=== PATIENT | female | born 1970 | race Caucasian/White ===

== ENCOUNTER 2020-11-24 13:59 | Inpatient (IN) | payer BC, SELFPAY ==
[2020-11-24] VITALS (8 sets, daily range): BP systolic 124–146; BP diastolic 74–98; PULSE 88–115; RESP 20–22; TEMP 36.9–37.3; O2SAT 95–99; BMI 40.4
--- NOTE | ~2020-11-24 | CT_ITS ---
EXAMINATION: CT chest abdomen pelvis w con EXAM DATE: 11/24/2020 15:29 INDICATION: Gastroenteritis, shortness of breath, severe N/V/D. dx COVID+ 11/17/20 . TECHNIQUE: Spiral CT of the chest, abdomen and pelvis was performed following intravenous injection o f 100 mL Omnipaque 350. Axial, coronal and sagittal images chest, abdomen and pelvis were reviewed. Coronal maximum intensity pixel images of chest reviewed. The dose-length product (DLP) for this ex amination was 1545.59 mGy-cm. The exposure was tailored according to patient size (auto mA exposure control), and iterative reconstruction (ASIR) was used as additional dose reduction technique. Correl ation is made to CT abdomen pelvis 05/06/2015. FINDINGS: CHEST: Scattered small regions of peripheral predominant groundglass airspace disease Appearance is typical of early stage COVID 19 pneumonia. Less likely acute possibilities include influenza, pulmon ciarra edema or hemorrhage. No confluent consolidation. No central pulmonary emboli. There are no pleura l or pericardial effusions. Tracheobronchial tree is patent. There is no mediastinal, hilar or ax illary lymphadenopathy. There is no pneumothorax. Heart normal in size. No evidence of coronary arterial calcification. ABDOMEN PELVIS: There is hepatic steatosis without suspicious focal lesion identified. Spleen, adrena l glands, pancreas are unremarkable. Gallbladder is unremarkable. No biliary obstruction. Portal a nd splenic veins are patent. Kidneys enhance symmetrically. There is no hydronephrosis. The uteru s is not identified and has likely been surgically resected. The bladder is unremarkable. There is no retroperitoneal or pelvic lymphadenopathy. The appendix is normal. The stomach and small bowel are unremarkable. There is expected amount of c olonic stool. No free intraperitoneal gas. There are no osteoblastic or osteolytic lesions identi fied. IMPRESSION: 1. Bibasilar pneumonia consistent with Covid 19 etiology. 2. No acute intra-abdominal findings. 3. Hepatic steatosis. Reviewed, dictated and finalized at location A.
[2020-11-24 14:42] LABS: Add Urine Microscopic? YES; Appearance Urine Sl Cloudy (Clear); Bilirubin Urine Negative (Negative); Blood Urine Negative (Negative); Color Urine Yellow (Yellow); Glucose Urine UA Negative (Negative); Ketones Urine 1+ (Negative); Leukocyte Esterase Ur Negative (Negative); Nitrate Urine Positive (Negative); Protein Urine 3+ (Negative); Specific Grav Ur >= 1.030 (1.010-1.020); pH Urine 5.5 (5.0-8.0)
[2020-11-24 14:50] LABS: Basophils Absolute Auto 0.01 K/mm3 (0.00-0.10); Basophils Percent Auto 0.2 % (0.0-1.0); Eosinophils Absolute Auto 0.05 K/mm3 (0.02-0.50); Eosinophils Percent Auto 0.8 % (1.0-6.0); Hemoglobin 15.4 g/dL (12.0-15.0); Immature Granulocyte Absolute 0.02 K/mm3 (0.00-0.00); Immature Granulocyte Percent A 0.3 % (0.0-0.0); Lymphocytes Absolute Auto 0.78 K/mm3 (1.10-4.50); Lymphocytes Percent Auto 12.6 % (18.0-42.0); Mean Corpuscular HGB Conc 33.5 g/dL (32.0-36.0); Mean Corpuscular Hemoglobin 30.3 pg (27.0-31.0); Mean Corpuscular Volume 90.6 fL (78.0-102.0); Mean Platelet Volume 12.8 fl (9.2-11.8); Monocytes Absolute Auto 0.67 K/mm3 (0.10-0.90); Monocytes Percent Auto 10.8 % (2.0-11.0); Neutrophils Absolute Auto 4.7 K/mm3 (1.7-7.2); Neutrophils Percent Auto 75.3 % (50.0-70.0); Platelet Count Result 175 K/mm3 (150-420); Red Blood Count 5.08 M/mm3 (4.20-5.40); Red Cell Distribution Width 12.3 % (11.6-14.4); White Blood Count 6.2 K/mm3 (4.8-10.8)
[2020-11-24] MEDS: PANTOPRAZOLE SODIUM IV 40 MG VIAL IV PUSH (14:50)
[2020-11-24] MEDS: ONDANSETRON INJ 4 MG/2 ML VIAL IV PUSH (14:53)
[2020-11-24] MEDS: SODIUM CHLORIDE 0.9% IV 1,000 ML 999 ML IV CONT (14:54)
[2020-11-24 14:58] LABS: RBC Urine 0-2 /hpf (0-2); Squamous Epithelial Cell Urine Many /hpf (Few)
[2020-11-24 14:59] LABS: Bacteria Urine 4+ /hpf
[2020-11-24 15:02] LABS: Alanine Aminotransferase 95 U/L (14-59); Albumin Level 4.1 g/dL (3.4-5.0); Alkaline Phosphatase 111 U/L (46-116); Anion Gap 12 mmol/L (8-16); Aspartate Amino Transferase 50 U/L (15-37); Bilirubin,Total 0.7 mg/dL (0.00-1.00); Blood Urea Nitrogen 12 mg/dL (7-18); Calcium 8.9 mg/dL (8.5-10.1); Carbon Dioxide 25 mmol/L (21-32); Chloride 103 mmol/L (98-108); Estimated CRCL calculation 65 ml/min; Estimated Glomerular Filt Rate > 60; Glucose 133 mg/dL (70-99); Lipase 132 U/L (73-393); Osmolality Calculated 291 mOsm/kg (285-295); Sodium 140 mmol/L (136-145); Total Protein 8.1 g/dL (6.4-8.2)
[2020-11-24 15:11] LABS: SARS-CoV-2 Ag Positive (Negative)
--- NOTE | 2020-11-24 16:15 | PC.NURSE ---
Report to Falguni Rn
[2020-11-24] MEDS: ALBUTEROL SULFATE (*SP) INHALER 2 PUFF INHALATION (16:36)
[2020-11-24] MEDS: AZITHROMYCIN 250 MG TABLET 500 MG PO (17:09)
[2020-11-24] MEDS: methylPREDNISolone SOD SUCC 125 MG VIAL IV PUSH ×2 (17:10→23:41)
--- NOTE | 2020-11-24 17:11 | ED.NAVMDI ---
HPI - Nausea/Vomiting/Diarrhea General Chief complaint: Nausea/Vomiting/Diarrhea Stated complaint: COVID AND SICK Time Seen by Provider: 11/24/20 14:01 Source: patient and RN notes reviewed Mode of arrival: ambulatory Limitations: no limitations History of Present Illness MD elicited complaint: nausea, vomiting and other (mild SOB) Pertinent past history: other (recent covid +) Onset (ago): day(s) (1) Description of vomiting: watery Description of diarrhea: watery Associated nausea: Yes Associated abdominal pain: Yes Location of pain: periumbilical Radiation: diffuse Pain consistency: colicky Severity: mild Pain scale (0-10): 3 Quality: cramping, dull and constant Exacerbating factors: none Relieving factors: none Associated symptoms: cough, nausea/vomiting and shortness of breath Related Data Home Medications Medication Instructions Recorded Confirmed spironolactone 100 mg PO DAILY 11/24/20 11/24/20 Allergies Allergy/AdvReac Type Severity Reaction Status Date / Time No Known Allergies Allergy Verified 11/24/20 14:19 Review of Systems Review of Systems: All systems reviewed & are unremarkable except as noted in HPI and below PMFSH Past Medical History Medical History Gastroenteritis Pneumonia due to COVID-19 virus Social History Social History Alcohol intake: never Substance use: never Spiritual care concerns: No Exam Const: General: no acute distress and alert Nutritional Appearance: well nourished and obese Orientation/consciousness: patient oriented x3 HENMT: Head: normal to inspection Ears: external ears normal and TM's normal bilaterally General nose exam: Normal external nose present and Normal nares present Mouth: Yes lip normal and Yes moist mucous membranes Teeth and gingiva: dentition normal Eyes: Pupils: Equal, round and reactive pupils present EOM: EOMs intact bilaterally Neck: Neck: normal visual inspection Chest: Chest palpation & inspection: normal inspection of the chest Resp: Effort & Inspection: normal respiratory effort Auscultation: crackles and rhonchi Cardio: Rate: tachycardic Rhythm: regular rhythm GI: GI Palp: Yes Soft to palpation, Yes Tenderness to palpation present (GI), No Guarding due to palpation present (GI) and No Rebound tenderness present Auscultation: normal bowel sounds : General: Yes bladder normal to palpation and Yes no CVA tenderness Back/Spine/Pelvis: Back: no CVA tenderness Skin: General skin exam: normal color Rashes: no rashes Neuro: General: patient oriented x3, moves all extremities, no meningeal signs, no focal motor deficits and CN's II-XI intact bilaterally Extrem: General: normal to inspection and no pedal edema Psych: Appearance: grossly normal Mental Status: mental status grossly normal Thought content: Yes Normal thought content present Course Course Emergency Course: Pt for admission. See orders. Reevaluation(s) Reevaluation #1: Vital signs normalized and GI loss was lessened. Pt remained ill. Date: 11/24/20 Time: 15:20 Vital Signs Vital signs: Vital Signs Temperature 36.9 C 11/24/20 14:22 Pulse Rate 115 H 11/24/20 14:22 Respiratory Rate 20 11/24/20 14:22 Blood Pressure 146/98 H 11/24/20 14:22 Pulse Oximetry 98 11/24/20 14:22 Temperature 37.2 C 11/25/20 04:00 Pulse Rate 78 11/25/20 04:00 Respiratory Rate 20 11/25/20 04:00 Blood Pressure 111/64 11/25/20 04:00 Pulse Oximetry 95 11/25/20 04:00 MDM - Nausea/Vomiting/Diarrhea Differential Diagnosis Differential diagnosis: Likely traveler's diarrhea, food poisoning, gastroenteritis and dehydration Medical Records Attestation: I reviewed the patient's medical records. Lab Data Result diagrams: 11/25/20 05:07 11/24/20 14:44 Labs: Lab Results 11/24/20 11/24/20 11/24/20 Range/Uni
--- NOTE | 2020-11-24 17:20 | PC.NURSE ---
Pt arrived to floor via wheelchair. Pt placed in airborne isolation. She is educated about isolation and activity. Pt alert and oriented, and independent in the room. Pt has cell phone, car keys and clothing at bedside.
[2020-11-24] MEDS: SODIUM CHLORIDE 0.9% IV 1,000 ML 125 ML IV CONT (18:52)
[2020-11-24] MEDS: guaiFENesin 12 HR 600 MG TABCR PO (21:13)
--- NOTE | 2020-11-24 23:10 | PC.NURSE ---
Change of shift report completed. Patient sleeping comfortably in bed without any signs of pain or discomfort.
--- NOTE | 2020-11-24 23:10 | PC.NURSE ---
Change of shift report completed. Patient resting comfortably in bed, with no signs of pain or discomfort. Patient states mucinex has helped her cough, although she is still coughing. Patient stated she did not need anything else at this time.
[2020-11-25] VITALS (7 sets, daily range): BP systolic 111–138; BP diastolic 59–71; PULSE 69–98; RESP 16–22; TEMP 36.4–37.2; O2SAT 95–97
--- NOTE | 2020-11-25 02:10 | PC.NURSE ---
Patient rounding completed. Patient is resting comfortably in bed. She states that she is typically up late due to insomnia, so she is not concerned about not yet falling asleep. Patient stated that she does not need anything at this time.
[2020-11-25] MEDS: SODIUM CHLORIDE 0.9% IV 1,000 ML 125 ML IV CONT ×2 (02:43→11:18)
--- NOTE | 2020-11-25 05:00 | PC.NURSE ---
Patient rounding completed. Patient awoke when room was entered. Stated she had made approximately 10 trips to the toilet tonight, as she has frequent bladder . Patient is independent. Hat placed in toilet.
[2020-11-25 05:14] LABS: Hematocrit 38.4 % (35.0-49.0); Hemoglobin 12.9 g/dL (12.0-15.0); Mean Corpuscular HGB Conc 33.6 g/dL (32.0-36.0); Mean Corpuscular Hemoglobin 30.7 pg (27.0-31.0); Mean Corpuscular Volume 91.4 fL (78.0-102.0); Mean Platelet Volume 12.4 fl (9.2-11.8); Platelet Count Result 155 K/mm3 (150-420); Red Cell Distribution Width 12.3 % (11.6-14.4); White Blood Count 3.2 K/mm3 (4.8-10.8)
[2020-11-25 05:32] LABS: Alanine Aminotransferase 70 U/L (14-59); Albumin Level 3.3 g/dL (3.4-5.0); Alkaline Phosphatase 89 U/L (46-116); Anion Gap 11 mmol/L (8-16); Aspartate Amino Transferase 30 U/L (15-37); Bilirubin,Total 0.4 mg/dL (0.00-1.00); Blood Urea Nitrogen 7 mg/dL (7-18); Carbon Dioxide 24 mmol/L (21-32); Chloride 106 mmol/L (98-108); Estimated CRCL calculation 80 ml/min; Estimated Glomerular Filt Rate > 60; Glucose 210 mg/dL (70-99); Osmolality Calculated 296 mOsm/kg (285-295); Potassium 4.2 mmol/L (3.5-5.1); Sodium 141 mmol/L (136-145); Total Protein 6.8 g/dL (6.4-8.2)
[2020-11-25 05:38] LABS: Band Neutrophils Percent 2 % (0-6); Basophils Percent Manual 0 % (0-1); Eosinophils Percent Manual 0 % (1-6); Lymphocytes Absolute Manual 0.35 K/mm3 (1.1-4.5); Lymphocytes Percent Manual 11 % (18-44); Monocytes Absolute Manual 0.03 K/mm3 (0.1-0.90); Monocytes Percent Manual 1 % (3-9); Neutrophils Absolute Manual 2.81 K/mm3 (1.7-7.2); Neutrophils Percent Manual 86 % (46-73); Total Cells Counted 100
[2020-11-25 05:39] LABS: Platelet Estimate Adequate (Adequate)
[2020-11-25] MEDS: methylPREDNISolone SOD SUCC 125 MG VIAL IV PUSH ×2 (05:44→11:17)
--- NOTE | 2020-11-25 06:54 | PC.NURSE ---
Patient did not experience any nausea or vomiting tonight. She had some diarrhea, and was not able to sleep for very long. Patient states that she has frequent difficulty with insomnia at home, so she was not surprised that she did not sleep well. Patient is not in any pain or discomfort at this time.
[2020-11-25] MEDS: SPIRONOLACTONE 25 MG TABLET 100 MG PO (08:02)
[2020-11-25] MEDS: guaiFENesin 12 HR 600 MG TABCR PO ×2 (08:03→21:08)
--- NOTE | 2020-11-25 10:49 | P.PNIM_ITS ---
Progress Note: A&P Assessment and Plan (1) Pneumonia due to COVID-19 virus: Code(s): U07.1 - COVID-19; J12.82 - Pneumonia due to coronavirus disease 2019 <Mino PooleRAÚL keithC - Last Filed: 11/25/20 13:58> Status: Acute <Mino PooleRAÚL keithC - Last Filed: 11/25/20 13:58> Assessment and Plan: Pt does not require supplemental oxygen, no SOB, occasional cough with deep breathing, Rocephin and Azithromycin, monitoring respiratory status <Mino WoodsonJimmy Garcia APN-C - Last Filed: 11/25/20 13:58> (2) Gastroenteritis: Code(s): K52.9 - Noninfective gastroenteritis and colitis, unspecified <Roman autumn Delon KONRAD Garcia-C - Last Filed: 11/25/20 13:58> Status: Acute <Mino WoodsonSAEED Louise - Last Filed: 11/25/20 13:58> Assessment and Plan: No complaints of abdominal pain, Pt states diarrhea, C diff test ordered, waiting for sample, no fever, WBC 3.2 <Mino WoodsonJimmy Garcia APN-C - Last Filed: 11/25/20 13:58> (3) Dehydration: Code(s): E86.0 - Dehydration <Mino PooleKONRAD keith-C - Last Filed: 11/25/20 13:58> Status: Acute <Mino WoodsonJimmy Garcia APN-C - Last Filed: 11/25/20 13:58> Assessment and Plan: Pt was given NS @ 125/h she is taking PO fluids well, IVF stopped, Pt c/o N/V/D with resolution of N/V and diarrhea is minimal per bedside RN, stool will be sent for C diff testing. <Mino WoodsonSAEED Louise - Last Filed: 11/25/20 13:58> Subjective Date/time seen: 11/25/20 10:49 Pt resting in bed without complaints of CP, COB, fever, chills, body aches, joint pain, Nausea, or vomiting. She states she is having diarrhea. Nurses concerned about possible C. diff. Pt c/o cough with deep inspiration. Pt looking forward to returning home. <Mino PooleKONRAD keithPeggy - Last Filed: 11/25/20 13:58> Review of Systems Constitutional: Constitutional: Reports no additional constitutional complaints, Denies body ache(s), Denies chills, Denies fever(s), Denies headache(s), Denies malaise, Denies poor appetite and Denies weakness <Mino WoodsonJimmy VirgilioKONRAD keithPeggy - Last Filed: 11/25/20 13:58> Cardiovascular: Cardiovascular: Reports no additional cardiovascular complaints, Denies chest pain, Denies chest pain at rest and Denies chest pain with activity <Mino WoodsonJimmy Garcia APNPeggy - Last Filed: 11/25/20 13:58> Respiratory: Respiratory: Reports no additional respiratory complaints, Reports cough, Denies dyspnea and Denies dyspnea on exertion <Mino WoodsonJimmy Garcia APNPeggy - Last Filed: 11/25/20 13:58> Gastrointestinal: Gastrointestinal: Reports no additional gastrointestinal c omplaints, Denies abdominal pain and Denies dyspepsia <Mino WoodsonJimmy Garcia APNCommunity [facility] - Last Filed: 11/25/20 13:58> Musculoskeletal: Musculoskeletal: Reports no additional musculoskeletal complaints, Denies back pain, Denies myalgias, Denies arthralgias and Denies muscle cramps <Mino PooleKONRAD keithPeggy - Last Filed: 11/25/20 13:58> Neurologic: Reports system reviewed and no additional complaints, except as documented <Mino WoodsonJimmy Garcia APNPeggy - Last Filed: 11/25/20 13:58> Endocrine: Endocrine: Reports no additional endocrine complaints <Mino WoodsonJimmy Garcia APNPeggy - Last Filed: 11/25/20 13:58> Exam Const: General: cooperative, healthy appearing, comfortable, no acute distress, alert and awake <Mino WoodsonJimmy Garcia APNPeggy - Last Filed: 11/25/20 13:58> Nutritional Appearance: obese <Mino WoodsonJimmy Garcia APNPeggy - Last Filed: 11/25/20 13:58> Resp: Effort & Inspection: normal respiratory effort <Mino WoodsonJimmy Garcia APNPeggy Last Filed: 11/25/20 13:58> Auscultation: rhonchi (Mild) l
--- NOTE | 2020-11-25 10:49 | PM.IMPN ---
Progress Note: A&P Assessment and Plan (1) Pneumonia due to COVID-19 virus: Code(s): U07.1 - COVID-19; J12.82 - Pneumonia due to coronavirus disease 2019 <SAEED Quinonez - Last Filed: 11/25/20 13:58> Status: Acute <SAEED Quinonez - Last Filed: 11/25/20 13:58> Assessment and Plan: Pt does not require supplemental oxygen, no SOB, occasional cough with deep breathing, Rocephin and Azithromycin, monitoring respiratory status <RAÚL QuinonezC - Last Filed: 11/25/20 13:58> (2) Gastroenteritis: Code(s): K52.9 - Noninfective gastroenteritis and colitis, unspecified <RAÚL QuinonezC - Last Filed: 11/25/20 13:58> Status: Acute <SAEED Quinonez - Last Filed: 11/25/20 13:58> Assessment and Plan: No complaints of abdominal pain, Pt states diarrhea, C diff test ordered, waiting for sample, no fever, WBC 3.2 <RAÚL QuinonezC - Last Filed: 11/25/20 13:58> (3) Dehydration: Code(s): E86.0 - Dehydration <RAÚL QuinonezC - Last Filed: 11/25/20 13:58> Status: Acute <SAEED Quinonez - Last Filed: 11/25/20 13:58> Assessment and Plan: Pt was given NS @ 125/h she is taking PO fluids well, IVF stopped, Pt c/o N/V/D with resolution of N/V and diarrhea is minimal per bedside RN, stool will be sent for C diff testing. <Mino Garcia RISK MGRRickie - Last Filed: 11/25/20 13:58> Subjective Date/time seen: 11/25/20 10:49 Pt resting in bed without complaints of CP, COB, fever, chills, body aches, joint pain, Nausea, or vomiting. She states she is having diarrhea. Nurses concerned about possible C. diff. Pt c/o cough with deep inspiration. Pt looking forward to returning home. <Mino PooleRAÚL keith - Last Filed: 11/25/20 13:58> Review of Systems Constitutional: Constitutional: Reports no additional constitutional complaints, Denies body ache(s), Denies chills, Denies fever(s), Denies headache(s), Denies malaise, Denies poor appetite and Denies weakness <Mino WoodsonJimmy VirgilioSAEED keith - Last Filed: 11/25/20 13:58> Cardiovascular: Cardiovascular: Reports no additional cardiovascular complaints, Denies chest pain, Denies chest pain at rest and Denies chest pain with activity <Mino WoodsonJimmy VirgilioKONRAD keith - Last Filed: 11/25/20 13:58> Respiratory: Respiratory: Reports no additional respiratory complaints, Reports cough, Denies dyspnea and Denies dyspnea on exertion <Mino PooleKONRAD keithPeggy - Last Filed: 11/25/20 13:58> Gastrointestinal: Gastrointestinal: Reports no additional gastrointestinal complaints, Denies abdominal pain and Denies dyspepsia <Mino WoodsonJimmy Garcia APN - Last Filed: 11/25/20 13:58> Musculoskeletal: Musculoskeletal: Reports no additional musculoskeletal complaints, Denies back pain, Denies myalgias, Denies arthralgias and Denies muscle cramps <Mino PooleRAÚL keith - Last Filed: 11/25/20 13:58> Neurologic: Reports system reviewed and no additional complaints, except as documented <Mino WoodsonJimmy Garcia APNPeggyRenard - Last Filed: 11/25/20 13:58> Endocrine: Endocrine: Reports no additional endocrine complaints <Mino WoodsonJimmy VirgilioKONRAD keith - Last Filed: 11/25/20 13:58> Exam Const: General: cooperative, healthy appearing, comfortable, no acute distress, alert and awake <Mino WoodsonSAEED Louise Last Filed: 11/25/20 13:58> Nutritional Appearance: obese <Mino WoodsonJimmy Garcia APNPeggy - Last Filed: 11/25/20 13:58> Resp: Effort & Inspection: normal respiratory effort <Mino WoodsonSAEED Louise - Last Filed: 11/25/20 13:58> Auscultation: rhonchi (Mild) lower bilaterally <SAEED Quinonez - Last Filed: 11/25/20 13:58> Cardio: Jugular venous distension: no JVD <SAEED Quinonez - Last Filed: 11/25/20 13:58> Rate: regular rate <SAEED Quinonez - Last Filed: 11/25/20 13:58> Heart sounds: S1 normal heart sound present and S2 normal heart sound present <SAEED Quinonez - Last Filed: 11/25/20 13:58>
--- NOTE | 2020-11-25 12:54 | PC.NURSE ---
scant amount of fecal matter collected for dif sample and was delivered to lab.
[2020-11-25] MEDS: AZITHROMYCIN 250 MG TABLET 500 MG PO (16:04)
--- NOTE | 2020-11-25 16:28 | PC.NURSE ---
PT RESTING IN BED WATCHING TV. NO DISTRESS. DRINKING FLUIDS AT BEDSIDE. NO NEEDS, OR REQUESTS AT THIS TIME. NO FURTHER LOOSE STOOLS. PT HAS HAT FOR COLLECTION IN TOILET, AWARE OF NEED TO MONITOR OUTPUT. 200ML URINE EMPTIED. PT HAS HOARSE COUGH, DENIES MUCOUS PRODUCTION, REQUESTING COUGH SUPPRESSANT, WILL CONVEY REQUEST TO CHARGE, RN. CALL LIGHT & PHONE IN REACH. IV ABX INFUSING ORDERED.
[2020-11-25] MEDS: BENZONATATE 100 MG CAPSULE (18:35)
[2020-11-25] MEDS: traZODone HCL 50 MG TABLET PO (21:08)
[2020-11-25] MEDS: methylPREDNISolone SOD SUCC 125 MG VIAL 60 MG IV PUSH (21:17)
[2020-11-26] VITALS: BP 135/58; PULSE 67; PULSE 69; RESP 20; TEMP 36.9; O2SAT 93
[2020-11-26 04:00] VITALS: BP 100/53; PULSE 67; RESP 18; TEMP 36.4; O2SAT 96
[2020-11-26 05:13] LABS: Hematocrit 39.9 % (35.0-49.0); Hemoglobin 13.1 g/dL (12.0-15.0); Mean Corpuscular HGB Conc 32.8 g/dL (32.0-36.0); Mean Corpuscular Volume 91.5 fL (78.0-102.0); Mean Platelet Volume 12.8 fl (9.2-11.8); Platelet Count Result 173 K/mm3 (150-420); Red Blood Count 4.36 M/mm3 (4.20-5.40); Red Cell Distribution Width 12.3 % (11.6-14.4); White Blood Count 10.3 K/mm3 (4.8-10.8)
[2020-11-26 05:24] LABS: Anion Gap 10 mmol/L (8-16); Blood Urea Nitrogen 13 mg/dL (7-18); Calcium 8.3 mg/dL (8.5-10.1); Carbon Dioxide 26 mmol/L (21-32); Chloride 106 mmol/L (98-108); Estimated CRCL calculation 68 ml/min; Estimated Glomerular Filt Rate > 60; Glucose 237 mg/dL (70-99); Osmolality Calculated 302 mOsm/kg (285-295); Sodium 142 mmol/L (136-145)
[2020-11-26 08:00] VITALS: BP 108/74; PULSE 102; PULSE 98; RESP 20; TEMP 36.6; O2SAT 98
[2020-11-26] MEDS: methylPREDNISolone SOD SUCC 125 MG VIAL 60 MG IV PUSH (08:16)
[2020-11-26] MEDS: SPIRONOLACTONE 25 MG TABLET 100 MG PO (08:16)
[2020-11-26] MEDS: guaiFENesin 12 HR 600 MG TABCR PO (08:17)
[2020-11-26] MEDS: BENZONATATE 100 MG CAPSULE PO (08:17)
--- NOTE | 2020-11-26 10:12 | PM.DS ---
DS: Admitting Diagnosis Discharge Date 11/26/2020 Admitting Diagnosis COVID, Gastroenteritis, Dehydration DS: Discharge Diagnosis Discharge Diagnosis (1) Pneumonia due to COVID-19 virus: Code(s): U07.1 - COVID-19; J12.82 - Pneumonia due to coronavirus disease 2019 Status: Acute Assessment and Plan: Pt does not require supplemental oxygen, no SOB, occasional cough with deep breathing, Rocephin and Azithromycin, monitoring respiratory status 11/26/2020 Will continue Azithromycin and taper steroids on DC, has non-productive cough and states Tessalon Pearls work well for her. Discussed quarantine, gave handout re COVID. Diminished in bases clear in apecies (2) Gastroenteritis: Code(s): K52.9 - Noninfective gastroenteritis and colitis, unspecified Status: Acute Assessment and Plan: No complaints of abdominal pain, Pt states diarrhea, C diff test ordered, waiting for sample, no fever, WBC 3.2 11/26/2020 N/V/D have resolved, C diff negative, Blood Cx negative, taking PO fluids and food well (3) Dehydration: Code(s): E86.0 - Dehydration Status: Acute Assessment and Plan: Pt was given NS @ 125/h she is taking PO fluids well, IVF stopped, Pt c/o N/V/D with resolution of N/V and diarrhea is minimal per bedside RN, stool will be sent for C diff testing. 11/26/2020 Resolved, tolerating PO fluids and foods well. Continue with PO fluids on DC (4) UTI (urinary tract infection): Code(s): N39.0 - Urinary tract infection, site not specified Status: Acute Assessment and Plan: 11/26/2020 Pt has has 2 doses of Rocephin, will send home with Bactrim DS for 3 days. No urinary symptoms at this time. DS: Summary Hospital Course Hospital Course: Gastroenteritis resolved, Breathing improved, taking PO fluids and food well. Time Spent with Patient Time attestation: Total time spent providing and/or coordinating discharge services: < 30 minutes Exam Const: General: cooperative, comfortable, no acute distress, alert, awake and Physically active Nutritional Appearance: obese Resp: Effort & Inspection: normal respiratory effort and Actively coughing (with deep inspiration) dry Auscultation: diminished lung sounds (postirior bases) Cardio: Rate: regular rate Heart sounds: S1 normal heart sound present and S2 normal heart sound present GI: GI Palp: Yes Soft to palpation and No Tenderness to palpation present (GI) Auscultation: normal bowel sounds Skin: General skin exam: normal color and dry skin Neuro: General: oriented to person, oriented to place, oriented to time and CN's II-XI intact bilaterally ([id number] intact) Cognition (Neuro): normal cognition Speech: normal speech Motor exam (neuro): 5/5 motor strength present throughout Extrem: General: full ROM and no pedal edema Psych: Appearance: grossly normal Mental Status: mental status grossly normal Speech and movement: Normal speech and movement present Affect: normal affect Attitude: cooperative Thought process: Normal thought process present DS: Data Data Completed and Pending Labs on day of discharge: Labs from last 24 hours 11/26/20 11/26/20 05:01 05:01 WBC 10.3 RBC 4.36 Hgb 13.1 Hct 39.9 MCV 91.5 MCH 30.0 MCHC 32.8 RDW 12.3 Plt Count 173 MPV 12.8 H Sodium 142 Potassium 4.0 Chloride 106 Carbon Dioxide 26 Anion Gap 10 BUN 13 Creatinine 0.92 Estim Creat Clear Calc 68 Estimated GFR > 60 Glucose 237 H Calculated Osmolality 302 H Calcium 8.3 L Preliminary micro results at discharge 11/24/20 16:30 Blood Culture - Preliminary Blood 11/24/20 16:15 Blood Culture - Preliminary Blood Discharge Plan Discharge Attending physician on discharge: Sridhar Keene Discharging Clinician: Mino Garcia Anticipated Discharge Date/Time: 11/26/20 11:00 Patient Disposition: Home, Self-Care Activity: as tolerated Diet: heart healthy D
--- NOTE | 2020-11-26 11:46 | PC.NURSE ---
dc instructions went over. inhaler use demonstrated. iv out and tele off. cont to have hacky cough with little sputum. claims she feels it starting to break up in chaest. encouraged to keep taking deep breathes and cough. encouraged to keep drinking water. denies any n/v or loose stools. wants to eat lunch before dc. verbalizes an understanding of orders.
--- NOTE | 2020-11-26 13:06 | PC.NURSE ---
1230 done with lunch and walked down to her auto.
--- NOTE | 2020-11-27 07:38 | PM.IMHP ---
H&P: HPI History of Present Illness Date/Time: 11/27/20 07:38 This is a delayed entry for H&P to replace 11/25/2020 Progress Note. Di Bailon is a 50 year old female who comes to the hospital for COVID pneumonia along with N/V/D. PT has had SOB for a few days. She tested positive for COVID on 11/24/2020. Lungs are clear with coughing in chains upon deep inspiration. Pt admits to having fevers but NO CP, Chills, body aches or joint pain. She was positive for UTI without symptoms. Currently with Rocephin and Azithromycin. No increase in oxygen demand and currently on room air. <SAEED Quinonez - Last Filed: 11/27/20 07:50> Chief Complaint: SOB <SAEED Quinonez - Last Filed: 11/27/20 07:50> Review of Systems Constitutional: Constitutional: Reports no additional constitutional complaints, Denies body ache(s), Denies chills, Reports fever(s), Denies headache(s) and Reports malaise <SAEED Quinonez - Last Filed: 11/27/20 07:50> Cardiovascular: Cardiovascular: Reports no additional cardiovascular complaints, Denies chest pain and Denies chest pain at rest <SAEED Quinonez - Last Filed: 11/27/20 07:50> Respiratory: Respiratory: Reports no additional respiratory complaints, Reports cough, Denies dyspnea and Reports dyspnea on exertion <SAEED Quinonez - Last Filed: 11/27/20 07:50> Gastrointestinal: Gastrointestinal: Reports no additional gastrointestinal complaints and Denies abdominal pain <SAEED Quinonez - Last Filed: 11/27/20 07:50> Genitourinary: Genitourinary: Reports no additional female genitourinary complaints <SAEED Quinonez - Last Filed: 11/27/20 07:50> Musculoskeletal: Musculoskeletal: Reports no additional musculoskeletal complaints <SAEED Quinonez - Last Filed: 11/27/20 07:50> Neurologic: Reports system reviewed and no additional complaints, except as documented <SAEED Quinonez - Last Filed: 11/27/20 07:50> Psychiatric: Psychiatric: Reports no additional psychiatric complaints <SAEED Quinonez - Last Filed: 11/27/20 07:50> [facility] Past Medical History Medical History: Medical History Gastroenteritis Pneumonia due to COVID-19 virus <SAEED Quinonez - Last Filed: 11/27/20 07:50> Social History Social History: Social History Alcohol intake: never Substance use: never Spiritual care concerns: No <SAEED Quinonez - Last Filed: 11/27/20 07:50> Meds Home Medications and Allergies Home medications: Home Medications Medication Instructions Recorded Confirmed Type spironolactone 100 mg PO DAILY 11/24/20 11/24/20 History albuterol sulfate [Proventil HFA] 2 puff INHALATION Q6H PRN #1 device 11/26/20 Rx azithromycin [Zithromax] 500 mg PO Q24H #4 tablet 11/26/20 Rx benzonatate 100 mg PO TID #30 cap 11/26/20 Rx guaifenesin [Mucus Relief ER] 600 mg PO Q12HR #20 tablet 11/26/20 Rx methylprednisolone [Medrol (Jason)] See Rx Instructions .ROUTE 11/26/20 Rx .COMPLEX #21 ea sulfamethoxazole-trimethoprim 1 tablet PO Q12H #6 tablet 11/26/20 Rx [Bactrim DS] <SAEED Quinonez - Last Filed: 11/27/20 07:50> Allergies/Adverse reactions: Allergies Allergy/AdvReac Type Severity Reaction Status Date / Time No Known Allergies Allergy Verified 11/24/20 14:19 <SAEED Quinonez - Last Filed: 11/27/20 07:50> Vital Signs Vital Signs - 24 hr 11/26/20 08:00 Temperature 98 F Pulse Rate 102 H Respiratory Rate 20 Blood Pressure 108/74 Pulse Oximetry 98 <SAEED Quinonez - Last Filed: 11/27/20 07:50> Exam Const: General: cooperative, comfortable, no acute distress, alert, awake, Physically active and ill appearing <SAEED Quinonez - Last Filed: 11/27/20 07:50> Nutritional Appearance: obese <SAEED Quinonez - Last Filed: 11/27/20 0
--- NOTE | 2020-11-27 13:57 | PC.NURSE ---
Pt states she received and understood her discharge instructions. Pt also states everybody was so good to me. I was very happy, Maria De Jesus was very good to me.
--- NOTE | 2020-11-27 20:56 | PC.NURSE ---
IV NS 1 L infused @ 999ml/hr at 1600 completed on 11/24/20.
== END 2020-11-26 12:30 | disposition home or self-care (01) | DRG 177 ==
LOC: CHSED 15:01 → CHS2ND 17:11
PROVIDERS: Nurse Practitioner Family; Admitting Provider Emergency Medicine; Emergency Provider Emergency Medicine; PCP Internal Medicine; Visit Provider Emergency Medicine
DX: U07.1 COVID-19 (principal); J12.82 Pneumonia due to coronavirus disease 2019; E86.0 Dehydration; K52.9 Noninfective gastroenteritis and colitis, unspecified; N39.0 Urinary tract infection, site not specified
CPT/HCPCS: 36415; 71260; 74177; 80048; 80053; 81001; 83690; 85025; 85027; 87040; 87324; 87426; 94640; 96361; 96365; 96375; 99285; A9270; C9113; C9803; J0696; J2405; J2930; J7030; Q9967

== ENCOUNTER 2021-02-23 12:25 | Outpatient (CLI) | payer BC, SELFPAY ==
--- NOTE | ~2021-02-23 | MM_ITS ---
EXAMINATION: MM screening chasity BI w janeen HISTORY: Screening TECHNIQUE: Craniocaudal and mediolateral oblique 3-D tomosynthesis images were obtained and synthetic 2-D images were generated. CAD analysis was submitted and interpreted. COMPARISON: Comparison to multiple prior studies sequentially, with oldest reviewed study dated 06/2012. BREAST PARENCHYMAL COMPOSITION: There are scattered areas of fibroglandular density. FINDINGS: There is no evidence of suspicious mass, calcification, or architectural distortion to sugg est malignancy in either breast. There has been no suspicious interval change. IMPRESSION: 1. No mammographic evidence of malignancy. 2. Recommend routine screening mammography in one year. BI-RADS Category 1: Negative Reviewed, dictated and finalized at location A. IC INFORMATION RELATIONS MANAGER
== END 2021-02-23 12:26 | disposition home or self-care (01) ==
LOC: CHSIMG 12:26
PROVIDERS: PCP Internal Medicine; Visit Provider Internal Medicine
DX: Z12.31 Encounter for screening mammogram for malignant neoplasm of breast (principal)
CPT/HCPCS: 77063; 77067

== ENCOUNTER 2022-02-26 11:48 | Outpatient (CLI) | payer BC, SELFPAY ==
--- NOTE | ~2022-02-26 | MM_ITS ---
EXAMINATION: MM screening chasity BI w janeen HISTORY: Screening mammogram TECHNIQUE: Craniocaudal and mediolateral oblique 3-D tomosynthesis images were obtained and synthetic 2-D images were generated. CAD analysis was submitted and interpreted. COMPARISON: 02/23/2021, 09/02/2014, 03/21/2013 bilateral screening mammogram examinations BREAST PARENCHYMAL COMPOSITION: There are scattered areas of fibroglandular density. FINDINGS: There is no evidence of suspicious mass, calcification, or architectural distortion to sugg est malignancy in either breast. There has been no suspicious interval change. IMPRESSION: 1. No mammographic evidence of malignancy. 2. Recommend routine screening mammography in one year. BI-RADS Category 1: Negative Reviewed, dictated and finalized at location A. RVISOR COMPUTER OPERATIONS
== END 2022-02-26 11:49 | disposition home or self-care (01) ==
LOC: CHSIMG 11:50
PROVIDERS: PCP Internal Medicine; Visit Provider Internal Medicine
DX: Z12.31 Encounter for screening mammogram for malignant neoplasm of breast (principal)
CPT/HCPCS: 77063; 77067

== ENCOUNTER 2022-04-13 22:11 | Emergency (ER) | payer BC, SELFPAY ==
--- NOTE | ~2022-04-13 | XR_ITS ---
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 RESULT: Lines, tubes, and devices: None. Lungs and pleura: Clear. Cardiomediastinal silhouette: Stable. Other: No acute osseous or upper abdominal finding. IMPRESSION: No acute cardiopulmonary process. Reviewed, dictated and finalized at location K. ID LOADER
[2022-04-13 22:15] VITALS: BP 146/89; PULSE 83; RESP 18; TEMP 36.8; O2SAT 98
--- NOTE | 2022-04-13 22:17 | ECG_ITS ---
Measurements Intervals [place] Rate: 80 P: 12 ND: 150 QRS: 0 QRSD: 94 T: 53 QT: 393 QTc: 455 Interpretive Statements SINUS RHYTHM LOW QRS VOLTAGE IN PRECORDIAL LEADS [QRS DEFLECTION < 1.0 mV IN CHEST LEADS] PATTERN CONSISTENT WITH PULMONARY DISEASE NO PREVIOUS ECG AVAILABLE FOR COMPARISON Electronically Signed On 04-14-2022 19:54:27 LADLE POURER by Tierra Gould M.D.
[2022-04-13 22:18] VITALS: PULSE 83
--- NOTE | 2022-04-13 22:19 | ED.CHESTPAIN ---
HPI - Chest Pain General Chief Complaint: Chest Pain Stated Complaint: chest pains History of Present Illness HPI narrative: Pt had 4 2 second episodes of left sided CP about 30 minutes ago. She has no pain now. Pt denies injury or other symptoms. Pt denies cough or fever. Pt doesnot have hx of CAD. Related Data Home Medications Medication Instructions Recorded Confirmed spironolactone 100 mg tablet 100 mg PO DAILY 11/24/20 11/24/20 Allergies Allergy/AdvReac Type Severity Reaction Status Date / Time No Known Allergies Allergy Verified 11/24/20 14:19 Review of Systems Review of Systems: All systems reviewed & are unremarkable except as noted in HPI and below PMFSH Past Medical History Medical History Gastroenteritis Pneumonia due to COVID-19 virus Social History Social History Alcohol intake: never Substance use: never Spiritual care concerns: No Exam Const: General: healthy appearing Nutritional Appearance: well nourished Orientation/consciousness: patient oriented x3 Limitations: no limitations HENMT: Head: normal to inspection Eyes: EOM: EOMs intact bilaterally Chest: Chest palpation & inspection: normal inspection of the chest Resp: Effort & Inspection: normal respiratory effort Auscultation: clear to auscultation bilaterally Cardio: Rate: regular rate Rhythm: regular rhythm GI: Auscultation: normal bowel sounds Skin: General skin exam: normal color Neuro: General: patient oriented x3, moves all extremities, no meningeal signs and no focal motor deficits Extrem: General: normal to inspection and no clubbing, cyanosis or edema Psych: Mental Status: mental status grossly normal Affect: Anxious affect present Attitude: cooperative Course Vital Signs Vital signs: Vital Signs Temperature 98.3 F 04/13/22 22:15 Pulse Rate 83 04/13/22 22:15 Respiratory Rate 18 04/13/22 22:15 Blood Pressure 146/89 H 04/13/22 22:15 Pulse Oximetry 98 04/13/22 22:15 Oxygen Delivery Room Air 04/13/22 22:15 Temperature 98.3 F 04/13/22 22:15 Pulse Rate 83 04/13/22 22:18 Respiratory Rate 18 04/13/22 22:15 Blood Pressure 146/89 H 04/13/22 22:15 Pulse Oximetry 98 04/13/22 22:15 Oxygen Delivery Room Air 04/13/22 22:18 MDM - Chest Pain MDM Narrative Medical decision making narrative: pt had several very brief episodes of 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 sounds more like muscle spasm given short duriation. Will checjk EKG and some labs and cxr to make sure it's not cardiac. labs ekg and cxr all normal, likely musculoskeltal. H 0 E 0 A 1 R 0 T 0 = 1 Medical Records Data Attestation: I reviewed the patient's medical records. Lab Data Attestation: I reviewed the patient's lab results. 04/13/22 22:29 04/13/22 22:29 Labs: Lab Results 04/13/22 04/13/22 Range/Units 22:29 22:29 WBC 9.4 (4.8-10.8) K/mm3 RBC 4.46 (4.20-5.40) M/mm3 Hgb 13.3 (12.0-15.0) g/dL Hct 40.1 (35.0-49.0) % MCV 89.9 (78.0-102.0) fL MCH 29.8 (27.0-31.0) pg MCHC 33.2 (32.0-36.0) g/dL RDW 12.1 (11.6-14.4) % Plt Count 206 (150-420) K/mm3 MPV 12.8 H (9.2-11.8) fl Immature Gran % (Auto) 0.2 H (0.0-0.0) % Neut % (Auto) 58.1 (50.0-70.0) % Lymph % (Auto) 29.3 (18.0-42.0) % [place] % (Auto) 9.9 (2.0-11.0) % Eos % (Auto) 2.1 (1.0-6.0) % Baso % (Auto) 0.4 (0.0-1.0) % Lymph # (Auto) 2.76 (1.10-4.50) K/mm3 [place] # (Auto) 0.93 H (0.10-0.90) K/mm3 Eos # (Auto) 0.20 (0.02-0.50) K/mm3 Baso # (Auto) 0.04 (0.00-0.10) K/mm3 Abs Immat Gran (auto) 0.02 H (0.00-0.00) K/mm3 Absolute Neuts (auto) 5.5 (1.7-7.2) K/mm3 Absolute Nucleated RBC 0.00 (0.00-0.00) K/mm3 Nucleated RBC % 0.0 (0-0.0) % Sodium 133 L (136-145) mmol/L Potassium 3.7 (3.5-5.1) mmo
[2022-04-13] MEDS: KETOROLAC 15 MG/ML VIAL (*BKC) IV PUSH (22:27)
[2022-04-13 22:32] LABS: Basophils Absolute Auto 0.04 K/mm3 (0.00-0.10); Basophils Percent Auto 0.4 % (0.0-1.0); Eosinophils Percent Auto 2.1 % (1.0-6.0); Hematocrit 40.1 % (35.0-49.0); Hemoglobin 13.3 g/dL (12.0-15.0); Immature Granulocyte Absolute 0.02 K/mm3 (0.00-0.00); Immature Granulocyte Percent A 0.2 % (0.0-0.0); Lymphocytes Absolute Auto 2.76 K/mm3 (1.10-4.50); Lymphocytes Percent Auto 29.3 % (18.0-42.0); Mean Corpuscular HGB Conc 33.2 g/dL (32.0-36.0); Mean Corpuscular Hemoglobin 29.8 pg (27.0-31.0); Mean Corpuscular Volume 89.9 fL (78.0-102.0); Mean Platelet Volume 12.8 fl (9.2-11.8); Monocytes Absolute Auto 0.93 K/mm3 (0.10-0.90); Monocytes Percent Auto 9.9 % (2.0-11.0); Neutrophils Absolute Auto 5.5 K/mm3 (1.7-7.2); Neutrophils Percent Auto 58.1 % (50.0-70.0); Platelet Count Result 206 K/mm3 (150-420); Red Blood Count 4.46 M/mm3 (4.20-5.40); Red Cell Distribution Width 12.1 % (11.6-14.4); White Blood Count 9.4 K/mm3 (4.8-10.8)
[2022-04-13 22:50] LABS: Alanine Aminotransferase 60 U/L (14-59); Albumin Level 4.2 g/dL (3.4-5.0); Alkaline Phosphatase 87 U/L (46-116); Anion Gap 11 mmol/L (8-16); Aspartate Amino Transferase 30 U/L (15-37); Bilirubin,Total 0.8 mg/dL (0.00-1.00); Blood Urea Nitrogen 16 mg/dL (7-18); Calcium 8.8 mg/dL (8.5-10.1); Carbon Dioxide 25 mmol/L (21-32); Chloride 97 mmol/L (98-108); Estimated CRCL calculation 64 ml/min; Estimated Glomerular Filt Rate > 60; Glucose 120 mg/dL (70-99); Osmolality Calculated 278 mOsm/kg (285-295); Potassium 3.7 mmol/L (3.5-5.1); Sodium 133 mmol/L (136-145); Total Protein 7.4 g/dL (6.4-8.2)
[2022-04-13 22:51] LABS: Troponin I < 4.0 ng/L (0.00-60.4)
[2022-04-13 22:59] VITALS: BP 118/56; PULSE 82; RESP 18; TEMP 36.8; O2SAT 98
== END 2022-04-13 23:00 | disposition home or self-care (01) ==
PROVIDERS: Emergency Provider Emergency Medicine
DX: R07.89 Other chest pain (principal)
CPT/HCPCS: 36415; 71045; 80053; 84484; 85025; 93005; 96374; 99284; J1885

== ENCOUNTER 2023-03-17 11:47 | Outpatient (CLI) | payer BC, SELFPAY ==
--- NOTE | ~2023-03-17 | MM_ITS ---
EXAMINATION: MM screening chasity BI w janeen HISTORY: Screening TECHNIQUE: Craniocaudal and mediolateral oblique 3-D tomosynthesis images were obtained and synthetic 2-D images were generated. CAD analysis was submitted and interpreted. COMPARISON: Comparison to multiple prior studies sequentially, with oldest reviewed study dated 03/21. BREAST PARENCHYMAL COMPOSITION: Breast composed of scattered areas of fibroglandular density FINDINGS: There is no evidence of suspicious mass, calcification, or architectural distortion to sugg est malignancy in either breast. There has been no suspicious interval change. IMPRESSION: 1. No mammographic evidence of malignancy. 2. Recommend routine screening mammography in one year. BI-RADS Category 1: Negative Reviewed, dictated and finalized at location A. L SHOP SUPERVISOR
== END 2023-03-17 11:48 | disposition home or self-care (01) ==
LOC: CHSIMG 11:49
PROVIDERS: PCP Internal Medicine; Visit Provider Internal Medicine
DX: Z12.31 Encounter for screening mammogram for malignant neoplasm of breast (principal)
CPT/HCPCS: 77063; 77067

== ENCOUNTER 2024-04-17 08:24 | Outpatient (CLI) | payer BC, SELFPAY ==
--- NOTE | ~2024-04-17 | MM_ITS ---
EXAMINATION: MM screening chasity BI w janeen HISTORY: Screening TECHNIQUE: Craniocaudal and mediolateral oblique 3-D tomosynthesis images were obtained and synthetic 2-D images were generated. CAD analysis was submitted and interpreted. COMPARISON: Comparison to multiple prior studies sequentially, with oldest reviewed study dated 07/2014. BREAST PARENCHYMAL COMPOSITION: Not dense: There are scattered areas of fibroglandular density. FINDINGS: There is no evidence of suspicious mass, calcification, or architectural distortion to sugg est malignancy in either breast. There has been no suspicious interval change. IMPRESSION: 1. No mammographic evidence of malignancy. 2. Recommend routine screening mammography in one year. BI-RADS Category 1: Negative Reviewed, dictated and finalized at location B. 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
--- OUTSIDE RECORDS SUMMARY | 2024-04-17 08:31 | XMS_ITS | Patient Health Summary ---
Author Organization [facility] Address [address] [place] [address] Care Team Providers Care Gasoline Finisher Name Role Phone Dee Bradford MD Primary Care Provider [phone] Note from [facility],non-owned Affiliates and Associated Physician Practices is amultiple site organization consisting of ambulatory clinics and hospital sitesin [place], [place], [place] and [place]. This disclosure is being madepursuant to the Care Everywhere program and may not contain all information available regarding this patient. Last updated 17.[facility] Allergies No known active allergies Medications * Be aware that medications may not be up to date on this document. Alwaysverify current medications with the patient. * rosuvastatin (CRESTOR) 10 MG tablet(Started 05/02/2021) Take 1 tablet by mouth once daily * spironolactone (ALDACTONE) 100 MG tablet(Started 04/20/2021) Take 2 tablets by mouth once daily * clobetasol (TEMOVATE) 0.05 % gel(Started 05/06/2021) Dry the affected, painful tissue. Apply gel to affected intraoral site(s) two times daily. Do not eat, rinse, or drink for thirty minutes. Discontinue when the pain subsides. * naproxen sodium (ALEVE) 220 MG tablet Take 440 mg by mouth every 6 hours as needed Active Problems Problem Noted Date Diagnosed Date Bladder prolapse, female, acquired 05/06/2021 Atrophic vaginitis 09/07/2019 Urge incontinence of urine 09/07/2019 Immunizations * INFLUENZA VACCINE(Given 12/03/2014) * INFLUENZA VACCINE, QUADR. (FLUZONE; FLULAVAL; FLUARIX; AFLURIA QUADRIVALENT; 6MO+), 0.5 ML (IIV4)(Given 01/02/2021, 11/17/2016) * MMR(Given 01/04/2015, 12/05/2014) * Pneumococcal Pcv13 Conj(Given 03/21/2021) * TDAP (7yrs+)(Given 12/03/2014, 04/06/2014) * Zoster Hzv Vacc Recombinant Inj Im(Given 03/21/2021, 01/02/2021) Social History Tobacco Use Types Packs/Day Years Used Date Smoking Tobacco: Former Smokeless Tobacco: Never Sex and Gender Information Value Date Recorded Sex Assigned at Not on file Gender Identity Not on file Sexual Orientation Not on file Last Filed Vital Signs Vital Sign Reading Time Taken Comments Blood Pressure 127/78 05/21/2021 8:53 AM CDT Pulse 84 05/21/2021 8:53 AM CDT Temperature 36.3 C (97.4 F) 05/21/2021 8:53 AM CDT Respiratory Rate - - Oxygen Saturation - - Inhaled Oxygen Concentration - - Weight 81.6 kg (180 lb) 05/21/2021 8:53 AM CDT Height 154.9 cm (5' 1 ) 05/21/2021 8:53 AM CDT Body Mass Index 34.01 05/21/2021 8:53 AM CDT Care Teams Gasoline Finisher Relationship Specialty Start Date End Date Dee Bradford MD [address] [place] [address] PCP - General 04/15/21
--- OUTSIDE RECORDS SUMMARY | 2024-04-17 08:31 | XMS_ITS | Clinical Summary ---
Author Organization [facility] [employer] Address [address] [place] [address] Care Team Providers Care Tube Man Name Role Phone Dee Bradford MD Primary Care Provider [phone] Source Comments [facility],non-owned Affiliates and Associated Physician Practices is amultiple site organization consisting of ambulatory clinics and hospital sitesin [place], [place], [place] and [place]. This disclosure is being madepursuant to the Care Everywhere program and may not contain all information available regarding this patient. Last updated 17.[facility] Allergies No known active allergies Medications * Be aware that medications may not be up to date on this document. Alwaysverify current medications with the patient. Medication Sig Dispensed Refills Start Date End Date Status rosuvastatin (CRESTOR) 10 MG tablet Take 1 tablet by mouth once daily 05/02/2021 Active spironolactone (ALDACTONE) 100 MG tablet Take 2 tablets by mouth once daily 04/20/2021 Active clobetasol (TEMOVATE) 0.05 % gel Dry the affected, painful tissue. Apply gel to affected intraoral site(s) two times daily. Do not eat, rinse, or drink for thirty minutes. Discontinue when the pain subsides. 15 g 05/06/2021 Active Additional Information Patient taking differently: Topical 2 TIMES DAILY, Dry the affected, painful tissue. Apply gel to affected intraoral site(s) two times daily. Do not eat, rinse, or drink for thirty minutes. Discontinue when the pain subsides., Reported on 05/21/2021 naproxen sodium (ALEVE) 220 MG tablet Take 440 mg by mouth every 6 hours as needed Active Active Problems Problem Noted Date Diagnosed Date Bladder prolapse, female, acquired 05/06/2021 Atrophic vaginitis 09/07/2019 Urge incontinence of urine 09/07/2019 Immunizations Name Administration Dates Next Due INFLUENZA VACCINE 12/03/2014 INFLUENZA VACCINE, QUADR. (F LUZONE; FLULAVAL; FLUARIX; AFLURIA QUADRIVALENT; 6MO+), 0.5 ML (IIV4) 01/02/2021,11/17/2016 MMR 01/04/2015,12/05/2014 Pneumococcal Pcv13 Conj 03/21/2021 TDAP (7yrs+) 12/03/2014,04/06/2014 Zoster Hzv Vacc Recombinant Inj Im 03/21/2021, Social History Tobacco Use Types Packs/Day Years [...] Mass Index 34.01 05/21/2021 8:53 AM CDT Plan of Treatment Health Maintenance Due Date Last Done Comments COLOGUARD (AGES 45-75) - COL ON CA SCREENING 1969 COLON MONITORING 1969 COLONOSCOPY - COLON CA SCREENING 1969 CT COLONOGRAPHY - COLON CA SCREENING 1969 Colorectal Cancer Screening 1969 FIT - COLON CA SCREENING 1969 FLEX SIG - COLON CA SCREENING 1969 MAMMOGRAM 1969 PAP SMEAR 1969 HIV SCREENING 01/14/1984 HEPATITIS C SCREENING 01/09/1987 HEPATITIS B VACCINE (1 of 3 - 19+ 3-dose series) 01/14/1988 SCREENING FOR DIABETES 05/06/2021 PNEUMOCOCCAL VACCINE 50+ (2 of 2 - PPSV23) 03/21/2022 03/21/2021 COVID-19 VACCINE (1 - 2023-2 5 season) 2023 INFLUENZA VACCINE (#1) 2023 , 11/17/2016, 12/03/2014 DEPRESSION SCREENING 02/29/2024 DTAP/TDAP/TD VACCINES (3 - T d or Tdap) 12/03/2024 12/03/2014, 04/06/2014 PNEUMOCOCCAL VACCINE Aged Out 03/21/2021 No long er eligible based on patient's age to complete this topic ZOSTER VACCINE Completed 03/21/2021, 01/02/2021 HIB VACCINE Aged Out No longer eligi ble based on patient's age to complete this topic HPV VACCINE Aged Out No longer eligi ble based on patient's age to complete this topic MENINGOCOCCAL (Group B) VACCINE Aged Out No longer eligible b ased on patient's age to complete this topic MENINGOCOCCAL VACCINE Aged Out No isaias joyce eligible based on patient's age to complete this topic Care Teams Tube Man Relationship Specialty Start Date End Date Dee Bradford MD [address] [place] [address] PCP - General 04/15/21
--- OUTSIDE RECORDS SUMMARY | 2024-04-17 08:31 | XMS_ITS | Clinical Summary ---
Author Organization [facility] Address [facility] [place] [address] Care Team Providers Care Hollow Handle Knife Assembler Name Role Phone Roya Umana MD Primary Care Provider [phone] Allergies No known active allergies Medications No known medications Encounters Date Type Department Care Team Description 04/11/2024 Blink [facility]ing [facility] [address] [place] [address] [facility] Provider Declined CC 04/09/2024 8:15 AM WOOL WASHER - 04/09/2024 11:59 PM WOOL WASHER Hospital Encounter [facility] [address] [place] [address] Roya Umana MD Discharge Disposition: Home or Self Care (Routine Discharge) 04/09/2024 Travel 03/22/2024 9:23 AM WOOL WASHER - 03/22/2024 11:59 PM WOOL WASHER Hospital Encounter [facility] [address] [place] [address] Roya Umana MD Discharge Disposition: Home or Self Care (Routine Discharge) 03/22/2024 Travel from Last 3 Months Social History Tobacco Use Types Packs/Day Years Used Date Smoking Tobacco: Never Smokeless Tobacco: Never Tobacco Cessation:Counseling Given: Not Answered Comments No Sex and Gender Information Value Date Recorded Sex Assigned at Female 03/23/2024 10:44 AM WOOL WASHER Legal Sex Female 5:43 PM WOOL WASHER Gender Identity Not on file Sexual Orientation Not on file Last Filed Vital Signs Vital Sign Reading Time Taken Comments Blood Pressure 138/64 06/22/2023 9:46 PM CDT Pulse 85 06/22/2023 9:46 PM CDT Temperature 36.1 C (97 F) 06/22/2023 9:46 PM CDT Respiratory Rate 16 06/22/2023 9:46 PM CDT Oxygen Saturation 100% 06/22/2023 9:46 PM CDT Inhaled Oxygen Concentration - - Weight 73 kg (161 lb) 06/22/2023 9:48 PM CDT Height 154.9 cm (5' 1 ) 06/22/2023 9:48 PM CDT Body Mass Index 30.42 06/22/2023 9:48 PM CDT Plan of Treatment Health Maintenance Due Date Last Done Comments Cervical Cancer Screening Pap Smear (Age 30 to 64) Every 3 Years 1969 Colorectal Cancer Screening Colonoscopy (10 Years) 1969 Annual Physical 01/14/1972 Hepatitis C 1987 Hepatitis B Vaccines (1 of 3 - 19+ 3-dose series) 01/14/1988 Cervical Cancer Screening Pap with HPV Testing (Age 30 to 64) Every 5 Years 1999 Cervical Cancer Screening with HPV 1999 COVID-19 Vaccine ( season) 2023 Influenza Adult (#1) 2023 12/07/2022, 01/03/2022, 01/02/2021, Additional history exists Mammogram Screening 12/24/2024 12/24/2022, 02/28/2020, 02/20/2019, Additional history exists DTaP, Tdap and Td Vaccines (4 - Td or Tdap) 10/01/2032 10/01/2022, 12/03/2014, 04/06/2014 Pneumococcal Vaccine: Pediatrics (0 to 5 Years) and At-Risk Patients (6 to 64 Years) Aged Out 03/21/2021 No longer eligible based on patient's age to complete this topic Zoster Vaccines Completed 03/21/2021, 01/02/2021 Meningococcal B Vaccine Aged Out No l onger eligible based on patient's age to complete this topic Meningococcal Vaccine Aged Out No isaias joyce eligible based on patient's age to complete this topic RSV Immunizations Under 20 Months Aged Out No longer eligible based on patient's age to complete this topic Procedures Procedure Name Priority Date/Time Associated Diagnosis Comments CT LUNG SCREENING Routine 04/09/2024 8:4 0 AM WOOL WASHER History of tobacco use BONE DENSITY/DEXA Routine 03/22/2024 9:4 3 AM WOOL WASHER Postmenopausal status from Last 3 Months Results * CT LUNG SCREENING (04/09/2024 8:40 AM WOOL WASHER) Anatomical Region Laterality Modality Chest Computed Tomogra phy 04/09/2024 8:56 AM WOOL WASHER Impressions 04/09/2024 9:01 AM WOOL WASHER IMPRESSION: 1. LUNG-RADS category 1: Negative, no evidence of primary lung cancer. 2. LUNG-RADS category S: Negative, no new/unknown potentially significant incidental findings requiring urgent additional evaluation. 3. Other incidental findings as above. RECOMMENDATIONS: Continued routine annual LDCT lung screening. Suggest next exam on or around March 2025. Thank you for choosing the [facility] Screening Program. Ordered By: ROYA UMANA Interpreted By: Sidney Steward MD, 04/09/2024 8:56 AM Narrative 04/09/2024 9:01 AM WOOL WASHER [address] [place] [address] EXAM: LUNG SCREENING LOW-DOSE CT THORAX WITHOUT CONTRAST DATE: 04/09/2024 HISTORY: Asymptomatic patient with history of smoking meeting CMS high-risk criteria for lung screening. * 54 years old * 30 pack years * Quit smoking 12 years ago COMPARISON: None TECHNIQUE: Noncontrast, helical, low-dose CT (LDCT) chest per standard departmental protocol. A dose lowering technique was used for this procedure, which may include, but is not limited to, dose reduction technique, automated exposure control, the use of iterative reconstruction, and ALARA (As Low As Reasonably Achievable) / Image Gently techniques. FINDINGS: Lung Screening Specific (LUNG-RADS): Negative. Calcified granulomas. Potentially Significant Incidentals (LUNG-RADS category S): None. Pulmonary Incidentals: None. Other Incidentals: Spondylosis. Procedure Note Sidney Steward MD - 02/10/2025 [facility] [address] [address] EXAM: LUNG SCREENING LOW-DOSE CT THORAX WITHOUT CONTRAST DATE: 04/09/2024 HISTORY: Asymptomatic patient with history of smoking meeting CMShigh-risk criteria for lung screening. * 54 years old * 30 pack years * Quit smoking 12 years ago COMPARISON: None TECHNIQUE: Noncontrast, helical, low-dose CT (LDCT) chest per standarddepartmental protocol. A dose lowering technique was used for thisprocedure, which may include, but is not limited to, dose reductiontechnique, automated exposure control, the use of iterativereconstruction, and ALARA (As Low As Reasonably Achievable) / Image Gentlytechniques. FINDINGS: Lung Screening Specific (LUNG-RADS): Negative. Calcified granulomas. Potentially Significant Incidentals (LUNG-RADS category S): None. Pulmonary Incidentals: None. Other Incidentals: Spondylosis. IMPRESSION: 1. LUNG-RADS category 1: Negative, no evidence of primary lung cancer. 2. LUNG-RADS category S: Negative, no new/unknown potentially significantincidental findings requiring urgent additional evaluation. 3. Other incidental findings as above. RECOMMENDATIONS: Continued routine annual LDCT lung screening. Suggestnext exam on or around March 2025. Thank you for choosing the [facility]. Ordered By: ROYA UMANA Interpreted By: Sidney Steward MD, 04/09/2024 8:56 AM Roya Umana MD CT Final Result * BONE DENSITY/DEXA (03/22/2024 9:43 AM WOOL WASHER) Anatomical Region Laterality Modality Bone Bone Density 03/22/2024 10:0 4 AM WOOL WASHER Impressions 03/22/2024 10:06 AM WOOL WASHER Impression: Consistent with osteopenia in both hips and borderline osteoporosis in the lumbar spine. Ordered By: ROYA UMANA Interpreted By: Teto Eddy MD, 03/22/2024 10:04 AM Narrative 03/22/2024 10:06 AM WOOL WASHER [address] [place] [address] Examination: DEXA Bone densitometry Clinical history: Postmenopausal. Osteoporosis screening. Comparison: None. Technique: DEXA bone mineral density evaluation was performed in the AP projection over the lumbar spine and over both hips in the AP projection utilizing standard imaging techniques. Assessment: The BMD measured at the AP spine L1-L4 is 0.779 g/cm2 with a T-score of -2.4 and a Z-score of -1.4. The patient is considered osteopenic according to World Health Organization (WHO) criteria. Bone density is between 10 and 25% below young normal. Fracture risk is moderate. Treatment is advised. The BMD measured at the femoral neck left is 0.612 g/cm2 with a T-score of -2.1 and a Z-score of -1.1. The patient is considered osteopenic according to World Health Organization (WHO) criteria. Bone density is between 10 and 25% below young normal. Fracture risk is moderate. Treatment is advised. The BMD measured at the femoral neck right is 0.644 g/cm2 with a T-score of -1.8 and a Z-score of -0.8. The patient is considered osteopenic according to World Health Organization (WHO) criteria. Bone density is between 10 and 25% below young normal. Fracture risk is moderate. Treatment is advised. FRAX 10-year fracture risk: Major Osteoporotic Fracture: 8%. Hip Fracture: 1%. Recommendations: All patients should ensure an adequate intake of dietary calcium and vitamin D. The NOF recommend adults under the age of 50 need 1000 mg of calcium and 400-800 IU of vitamin D daily. Effective therapy for the prevention and treatment of osteoporosis include biphosphonates. Follow-up: People with diagnosed cases of osteoporosis or at high risk for fracture should have regular bone mineral density test. For patients eligible for Medicare, routine testing is allowed once every 2 years. Testing frequency can be increased to one year for patients who have rapidly progressing disease, those who are receiving or discontinuing medical therapy to restore bone mass, or have additional risk factors. Based on these results, a followup exam is recommended in two years. Procedure Note Teto Eddy MD - 03/22/[address] [place] [address] Examination: DEXA Bone densitometry Clinical history: Postmenopausal. Osteoporosis screening. Comparison: None. Technique: DEXA bone mineral density evaluation was performed in the APprojection over the lumbar spine and over both hips in the AP projectionutilizing standard imaging techniques. Assessment: The BMD measured at the AP spine L1-L4 is 0.779 g/cm2 with a T-score of-2.4 and a Z-score of -1.4. The patient is considered osteopenicaccording to World Health Organization (WHO) criteria. Bone density isbetween 10 and 25% below young normal. Fracture risk is moderate.Treatment is advised. The BMD measured at the femoral neck left is 0.612 g/cm2 with a T-score of-2.1 and a Z-score of -1.1. The patient is considered osteopenicaccording to World Health Organization (WHO) criteria. Bone density isbetween 10 and 25% below young normal. Fracture risk is moderate.Treatment is advised. The BMD measured at the femoral neck right is 0.644 g/cm2 with a T-scoreof -1.8 and a Z-score of -0.8. The patient is considered osteopenicaccording to World Health Organization (WHO) criteria. Bone density isbetween 10 and 25% below young normal. Fracture risk is moderate.Treatment is advised. FRAX 10-year fracture risk: Major Osteoporotic Fracture: 8%. Hip Fracture: 1%. Recommendations: All patients should ensure an adequate intake of dietary calcium andvitamin D. The NOF recommend adults under the age of 50 need 1000 mg ofcalcium and 400-800 IU of vitamin D daily. Effective therapy for theprevention and treatment of osteoporosis include biphosphonates. Follow-up: People with diagnosed cases of osteoporosis or at high risk for fractureshould have regular bone mineral density test. For patients eligible forMedicare, routine testing is allowed once every 2 years. Testing frequencycan be increased to one year for patients who have rapidly progressingdisease, those who are receiving or discontinuing medical therapy torestore bone mass, or have additional risk factors. Based on these results, a followup exam is recommended in two years. Impression: Consistent with osteopenia in both hips and borderline osteoporosis in thelumbar spine. Ordered By: ROYA UMANA Interpreted By: Teto Eddy MD, 03/22/2024 10:04 AM us Roya Umana MD DEXA Final Result from Last 3 Months [facility] Care Teams Hollow Handle Knife Assembler Relationship Specialty Start Date End Date Roya Umana MD [address] [place] [address] PCP - General INTERNAL MEDICINE 06/22/23
--- OUTSIDE RECORDS SUMMARY | 2024-04-17 08:31 | XMS_ITS | Clinical Summary ---
Author Organization [facility] Address [address] [place] [address] Phone Care Team Providers Care Radio Time Sales Supervisor Name Role Phone Dee Bradford MD Primary Care Provider + Allergies No known active allergies Medications spironolactone (ALDACTONE) 100 mg tablet Take 200 mg by mouth daily. Active rosuvastatin calcium (ROSUVASTATIN ORAL) Take 10 mg by mouth daily at bedtime. Active naproxen sodium (ALEVE) 220 mg Tablet Take 440 mg by mouth every 6 hours as needed for Pain, Moderate. Active VITAMIN B COMPLEX ORAL Take by mouth. Active VITAMIN E ORAL Take by mouth. Active ASCORBIC ACID, VITAMIN C, ORAL Take by mouth. Active multivitamin (DAILY-FERN) tablet Take 1 Tablet by mouth daily. Active oxyCODONE (ROXICODONE) 5 mg tabletIndication s:Status post surgery Take 1 Tablet (5 mg) by mouth every 4 hours as needed for Pain. 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 Gender Identity Not on file Sexual Orientation Not on file Last Filed Vital Signs Vital Sign Reading Time Taken Comments Blood Pressure 105/50 06/06/2021 8:24 AM CDT Pulse 65 06/06/2021 8:24 AM CDT Temperature 36.3 C (97.4 F) 06/06/2021 8:24 AM CDT Respiratory Rate 18 06/06/2021 8:24 AM CDT Oxygen Saturation 98% 06/06/2021 8:24 AM CDT Inhaled Oxygen Concentration - - Weight 80.1 kg (176 lb 8 oz) 06/05/2021 5:15 AM CDT Height 154.9 cm (5' 1 ) 06/05/2021 5:15 AM CDT Body Mass Index 33.35 06/05/2021 5:15 AM CDT Plan of Treatment Health Maintenance Due Date Last Done Comments HEPATITIS B VACCINES (1 of 3 - 19+ 3-dose series) 01/14/1988 CERVICAL CANCER SCREENING 1999 BREAST CANCER SCREENING 2009 COLORECTAL SCREENING 2014 Colorectal Cancer Screening 2014 FIT-DNA Q 3 years 2014 FIT/FOBT Q 1 year 2014 Flex Sig/CT Colonography Q 5 years 2014 INFLUENZA VACCINE (#1) 2023 01/02/2021, 2016 DTAP/TDAP/TD VACCINES (3 - Td or Tdap) 12/03/2024, 04/06/2014 ZOSTER VACCINE Completed 03/21/2021, 01/02/2021 Medical Devices Implanted Type Area Gallery Or Museum Guide Device Identifier Shelf Expiration Date Model / Serial / Lot Sling [id number] Trnsobt Mid-Uret Crv [id number] - [id number] Implanted:Qty : 1 on 06/05/2021 by Krzysztof Gordon MD at [facility] Sling N/A: Vagina SUMPTER SCI- UROLOGY/SEAM RUBBING MACHINE OPERATOR [id number] 11/20/2023 [id number] / [id number] Insurance BCBS BLUE ACCESS/TRUE BLUE PPO RX EXPRESS SCRIP[employer] Express RX [employer] Commercial Advance Directives For more information, please contact: [phone] Documents on File Type Date Recorded Patient Weatherization Director Expl anation Advance Directive POA 06/05/2021 6:10 AM Ad meade Directive POA * Full Code (Latest Code Status on File) Date Activated Date Inactivated Comments 06/05/2021 12:01 PM 06/06/2021 4:57 PM * Full Code Date Activated Date Inactivated Comments 06/05/2021 5:38 AM 06/05/2021 12:01 PM Care Teams Radio Time Sales Supervisor Relationship Specialty Start Date End Date Dee Bradford MD [address] [place] [address] PCP - General Internal Medicine 05/19/21
--- OUTSIDE RECORDS SUMMARY | 2024-04-17 08:31 | XMS_ITS | Referral Summary ---
Author Organization [facility] Address [address] [place] [address] Care Team Providers Care Drum Sprayer Name Role Phone Dee Bradford MD Primary Care Provider [phone] [facility],non-owned Affiliates and Associated Physician Practices is amultiple site organization consisting of ambulatory clinics and hospital sitesin [place], [place], [place] and [place]. This disclosure is being madepursuant to the Care Everywhere program and may not contain all information available regarding this patient. Last updated 17.[facility] Allergies No known active allergies Medications * [...] 05/21/2021 8:53 AM CDT Plan of Treatment Not on file Care Teams Drum Sprayer Relationship Specialty Start Date End Date Dee Bradford MD [address] [place] [address] [facility] - General 04/15/21
--- OUTSIDE RECORDS SUMMARY | 2024-04-17 08:31 | XMS_ITS | Encounter Summary ---
Author Organization [facility] Address [address] [place] [address] Care Team Providers Care Marketing Officer Name Role Phone Dee Bradford MD Primary Care Provider Encounter Details Date Type Department Care Team (Late st Contact Info) Description 04/11/2024 Citizen[employer]VC Message [employer] Business Office [address] [place] [address] Hitesh, [facility] Provider Declined CC Social History Tobacco Use Types Packs/Day Years Used Date Smoking Tobacco: Never Smokeless Tobacco: Never Comments No Sex and Gender Information Value Date Recorded Sex Assigned at Female 03/23/2024 10:44 AM NAMED ACCOUNT EXECUTIVE Legal Sex Female 5:43 PM NAMED ACCOUNT EXECUTIVE Gender Identity Not on file Sexual Orientation Not on file documented as of this encounter Plan of Treatment Not on file documented as of this encounter Visit Diagnoses Not on filedocumented in this encounter Care Teams Marketing Officer Relationship Specialty Start Date End Date Dee Bradford MD [address] [place] [address] PCP - General INTERNAL MEDICINE 06/22/23 documented as of this encounter
--- OUTSIDE RECORDS SUMMARY | 2024-04-17 08:31 | XMS_ITS | Clinical Summary ---
Author Organization [facility] Address [address] [place] [address] Care Team Providers Care Pediatric Speech Language Pathologist Name Role Phone Dee Bradford MD Primary Care Provider [phone] Surgical History Surgery Date Site/Laterality Comments BREAST LUMPECTOMY 02/28/2009 - 02/27/2010 Right intraductal papilloma Medical History Medical History Date Comments Smoking Family History Medical History Relation Name Comments Breast cancer Neg Hx Ovarian cancer Neg Hx Thyroid cancer Neg Hx Social History Tobacco Use Types Packs/Day Years Used Date Smoking Tobacco: Never Assessed Comments Unknown Sex and Gender Information Value Date Recorded Sex Assigned at Not on file Legal Sex Female 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 Gender Identity Female 12/24/2022 8:53 AM CDT Sexual Orientation Not on file Obstetrics History Para Term AB IAB SAB Ectopic Multiple Livin g Live Births 4 2 2 Date Outcome GA Total Labor Labor/2nd/3rd Weight Sex Type Anes PTL Elena A1 A5 Name Clin Term Term Last Filed Vital Signs Vital Sign Reading Time Taken Comments Blood Pressure - - Pulse - - Temperature - - Respiratory Rate - - Oxygen Saturation - - Inhaled Oxygen Concentration - - Weight - - Height 154.9 cm (5' 1 ) 12/24/2022 9:04 AM CDT Body Mass Index - - Plan of Treatment Health Maintenance Due Date Last Done Comments Breast Cancer Screening-Mammogram 1969 Cervical Cancer Screening 1969 Colon Cancer Screening-Colonoscopy 1969 Depression Screening 1969 Hepatitis C Screening 1969 Hepatitis B Screening 1987 Regular Well Visit/Exam 18-64 1987 Influenza Vaccine (#1) 2023 3, 01/03/2022, 01/02/2021, Additional history exists DTaP/Tdap/Td Vaccine (4 - Td or Tdap) 10/01/2032 10/01/2022, 12/03/2014, 04/06/2014 Pneumococcal vaccine <65 Aged Out 03/21/2021 No longer eligible based on patient's age to complete this topic Zoster Vaccine Completed 03/21/2021, 01/02/2021 Insurance [facility] Care Teams Pediatric Speech Language Pathologist Relationship Specialty Start Date End Date Dee Bradford MD [address] [place] [address] PCP - General Internal Medicine 10/26/22
--- OUTSIDE RECORDS SUMMARY | 2024-04-17 08:31 | XMS_ITS | Clinical Summary ---
Author Organization [facility] Address [address] [place] [address] Phone Care Team Providers Care Chief Meteorologist Name Role Phone Dee Bradford MD Primary Care Provider [phone] Social History Tobacco Use Types Packs/Day Years Used Date Smoking Tobacco: Never Assessed Comments No Sex and Gender Information Value Date Recorded Sex Assigned at Not on file Legal Sex Female 12:57 PM CDT Gender Identity Not on file Sexual Orientation Not on file Plan of Treatment Health Maintenance Due Date Last Done Comments Hepatitis C Virus (HCV) Screening 1970 Hepatitis B Immunization (1 of 3 - 19+ 3-dose series) 01/14/1988 Colonoscopy 2014 Colorectal Cancer Screening 2014 Cologuard 2019 Immunochemical Fecal Occult Blood 2019 Pneumococcal Immunization (50+ years) (1 of 1 - PCV) 2019 Zoster Immunization (1 of 2) 2019 Mammogram 02/27/2022 02/28/2020, 1205/2018, 01/06/2018, Additional history exists Influenza Immunization (#1) 2023 11/17/2016, 1 SARS-COV-2 Immunization ( - 2023- season) 2023 Respiratory Syncytial Virus (RSV) Immunization (Adult) (1 - 1-dose 75+ series) 01/14/2044 DTaP/Tdap/Td Immunization Discontinued 12/03/2014, 08/2014 TdaP Immunization Completed 12/03/2014, 04/06/2014 Meningococcal Immunization (ACWY) Aged Out No longer eligible based on patient's age to complete this topic Pneumococcal Immunization Combined Aged Out No longer eligible based on patient's age to complete this topic Rotavirus Immunization Aged Out No lo nger eligible based on patient's age to complete this topic Procedures Procedure Name Priority Date/Time Associated Diagnosis Comments GABRIELLE SCREENING BILATERAL DIGITAL W CAD W BRINDA Routine 02/28/2020 11:21 AM UNION CONTRACT REPRESENTATIVE Encounter for mammogram to establish baseline mammogram from Last 3 Months or Most Recently Relevant to Health Maintenance Results * GABRIELLE SCREENING BILATERAL DIGITAL W CAD W BRINDA (02/28/2020 11:21 AM UNION CONTRACT REPRESENTATIVE) Anatomical Region Laterality Modality breast Bilateral Mammography 02/28/2020 10:3 9 AM UNION CONTRACT REPRESENTATIVE Narrative 02/28/2020 12:25 PM UNION CONTRACT REPRESENTATIVE - GABRIELLE SCREENING BILATERAL DIGITAL W CAD W BRINDA BILATERAL DIGITAL SCREENING MAMMOGRAM 3D/2D WITH CAD WITH MEDIOLATERAL OBLIQUE CRANIOCAUDAL: 02/28/2020 The study was acquired using digital technology and interpreted from soft copy. Current study was also evaluated with ICAD version 7.2. CLINICAL: Routine screening. Patient has no complaints. No personal history of cancer. No family history of breast cancer. COMPARISONS: Comparison is made to exams dated: 02/20/2019, 01/06/2018, and 06/21/2016 [facility]. BREAST TISSUE:There are scattered fibroglandular densities in both breasts. FINDINGS: No significant masses, calcifications, or other findings are seen in either breast. There has been no significant interval change. IMPRESSION: BI-RAD 1 NEGATIVE There is no mammographic evidence of malignancy. A 1 year screening mammogram is recommended. The patient has been or will be contacted. The patient will be entered into a reminder system with a target due date of 1 year for her next screening exam. Electronically signed by: Aracelis laughlin/arpan:02/28/2020 12:01:55 Seed Yeast Operator: Jennifer Torres)(Zoila), [facility] letter sent: Normal Exam Reading location: [facility] BI-RADS: 1 Negative Procedure Note Aracelis Raymundo MD - 02/28/2020 - GABRIELLE SCREENING BILATERAL DIGITAL W CAD W BRINDA BILATERAL DIGITAL SCREENING MAMMOGRAM 3D/2D WITH CAD WITH MEDIOLATERAL OBLIQUE CRANIOCAUDAL: 02/28/2020 The study was acquired using digital technology and interpreted from soft copy. Current study was also evaluated with ICAD version 7.2. CLINICAL: Routine screening. Patient has no complaints. No personal history of cancer. No family history of breast cancer. COMPARISONS: Comparison is made to exams dated: 02/20/2019, 01/06/2018, and 06/21/2016 [facility]. BREAST TISSUE:There are scattered fibroglandular densities in both breasts. FINDINGS: No significant masses, calcifications, or other findings are seen in either breast. There has been no significant interval change. IMPRESSION: BI-RAD 1 NEGATIVE There is no mammographic evidence of malignancy. A 1 year screening mammogram is recommended. The patient has been or will be contacted. The patient will be entered into a reminder system with a target due date of 1 year for her next screening exam. Electronically signed by: Aracelis laughlin/arpan:02/28/2020 12:01:55 Seed Yeast Operator: Jennifer Torres)(M), [facility] letter sent: Normal Exam Reading location: [facility] BI-RADS: 1 Negative us Dee Bradford MD IMG MAMMO ORDERABLES Final Re sult from Last 3 Months or Most Recently Relevant to Health Maintenance Care Teams Chief Meteorologist Relationship Specialty Start Date End Date Dee Bradford MD [address] [place] [address] PCP - General Internal Medicine 06/03/16
--- OUTSIDE RECORDS SUMMARY | 2024-04-17 08:31 | XMS_ITS | Referral Summary ---
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
--- OUTSIDE RECORDS SUMMARY | 2024-04-17 08:31 | XMS_ITS | Data Portability ---
Author Organization [facility] Address [address] [place] [address] [address] Care Team Providers Care Interior Paneler Name Role Phone DONG ROOSEVELTSUMA Primary Care Provider [phone] Assessment No assessment recorded. Plan of Treatment Reminders Order Date Submit Date Provider Last Modified By Organization Details Last Modified Time Details Appointments None recorded. Lab None recorded. Referral None recorded. Procedures None recorded. Surgeries None recorded. Imaging None recorded. Medication Orders oxybutynin chloride ER 10 mg tablet,ext ended release 24 hr 2019 020 INTERFACE [facility] [address] [place], [address], 0 11:11:00 estradiol 0.01% (0.1 mg/gram) vaginal cream 2019 020 [email or web address] [facility] [address] [place], [address], 0 10:39:00 oxybutynin chloride ER 10 mg tablet,ext ended release 24 hr 2019 020 [facility]FACE [facility] [address] [place], [address], 0 10:40:26 Patient TargetsNo targets recorded. Patient InstructionsNo instructions recorded. Reason for Referral None Reported. Problems Name Problem SNOMED Code Status Onset Date Resolution Date Notes Provider Name and Address Organization Details Recorded Time Urge incontinence of urine 02884058 Active 2019 Khalif Corea MD [address], [place], [address], [facility] 0 11:19:10 Atrophic vaginitis 06625532 Active 2019 Khalif Corea MD [address], [place], [address], [facility] 0 11:19:25 Problem Notes None recorded. Procedures Surgical History Date Name Laterality Status Provider Name and Address Organization Details Recorded Time 02/28/19 10 Total Hysterectomy completed [facility] 08/09/2019 10:28:00 02/28/18 95 ligation of bilateral fallopian tubes completed [facility] 08/09/2019 10:28:06 Imaging Results None recorded. Procedure Notes None recorded. Medical Equipment None Reported. Allergies No known drug allergies Medications Name Sig Start Date Stop Date Status Note LastModified by Organization Details LastModified Time oxybutynin chloride er 10 mg tb24 active Not Available Not Available N ot Available oxybutynin chloride ER 10 mg tablet,exten ded release 24 hr Take 1 tablet every day by oral route. active Not Available Not Available No t Available Detrol 1 mg tablet Take 1 tablet twice a day by oral route. 2019 active Not Available Not Available Not Avai lable estradiol 0.01% (0.1 mg/gram) vaginal cream Insert 1 g twice a week by vaginal route. 09/06 completed Not Available Not Available Not Available Vitals Date Recorded Body height Body mass index (BMI) Body weight Systolic blood pressure Diastolic blood pressure Provider Name and Address Organization Details Last Updated DateTime 08/09/2019 154.94 cm 38.7 kg/m2 62004.44 g 119 mm[Hg] 78 mm[Hg] [facility] 0 10:11:38 Date Recorded Body height Body mass index (BMI) Body weight Systolic blood pressure Diastolic blood pressure Provider Name and Address Organization Details Last Updated DateTime 09/07/2019 154.94 cm 39.1 kg/m2 75205.62 g 129 mm[Hg] 79 mm[Hg] Romy Galilea [facility] 0 10:38:49 Social History None recorded. Functional Status None recorded. Mental Status None recorded. Family History Relationship Description Onset Age of this Age Resolved Age Notes LastModified by Organization Details LastModified Time Maternal Grandmother Diabetes mellitus [email or web address] Not available 2019 10:25:48 Sister Diabetes mellitus [email or web address] Not available 2019 10:25:55 Maternal Aunt Diabetes mellitus smcaley Not available 2019 10:26:01 Maternal Uncle Carcinoma in situ of liver smcaley Not available 2019 10:26:41 Maternal Uncle Carcinoma in situ of pharynx smcaley Not available 2019 10:27:35 Medical History Condition Response Breast Problem Y Gynecological HistoryNo gynecological history recorded. Obstetrics History GPAL:G 0 P 0 0 0 0 Past Encounters Encounter ID Performer Location Encounter Start Date Encounter Closed Date Diagnosis/Indication Diagnosis SNOMED-CT Code Diagnosis ICD10 Code Diagnosis Note [id number] Khalif Corea MD [place] [address] [address] 08/09/2019 10:05:30 08/09/2019 18:03:24 Urge incontinence of urine [id number] N39.41 Atrophic vaginitis 45397 000 N95.2 This patient is a 49-year-ol d female with surgical menopause for 10 years who was concerned about vaginal prolapse. She also has urinary urge and dyspareuni a. She has vaginal atrophy. We talked about the findings of her exam. I believe the area of concern with prolapse is some redundant suburethra l vaginal mucosa. The anterior vaginal wall has good support at the apex and posterior vaginal wall also have good support though there is maybe a grade 1 cystocele and rectocele. But it is subclinica l. Talked about treatment of urinary urge and we talked about treatment of vaginal atrophy. We agreed to treat with anticholin ergic and vaginal estrogen. We spent over 40 minutes face-to-fa ce discussing these 3 complex problems and their surroundin g issues. [id number] Khalif Corea MD [place] [address] [address] 09/07/2019 10:33:02 09/07/2019 11:32:46 Urge incontinence of urine 87464625 N39.41 This patient is a 49-year-ol d female presents for follow-up on urinary urge incontinen ce and vaginal atrophy. She is unable to get the vaginal Estrace Due to cost. We will arrange for a [facility] pharmacy a prescripti on. She will follow-up on vaginal atrophy in 2 months. Patient has noted marked improvemen t of her urinary urge incontinen ce. She is taking 10 mg of oxybutynin ER. Daily. She was to continue that. She is very satisfied. She will return in 2 months to discuss the effect of the vaginal Estrogen cream. Atrophic vaginitis 70068 000 N95.2 Health Concerns Section Related Observation LastModified by Organization Detai ls LastModified Time None Recorded Concern Status LastModified by Organization Details LastModified Time None Recorded Advance Directives Directive None Recorded Payers Encounter Date Sequence Insurance Name Policy Number Policy Khan Covered Member ID Khan Member ID Guarantor Name 08/09/2019 1 [facility] [id number] Sridhar Bailon [id number] Di Bailon 09/07/2019 1 [facility] [id number] Sridhar Bailon [id number] Di Bailon Notes Date Note Type Note Provider Name and Address Organization Details Recorded Time 08/09/2019 text/html Pelvic ProlapseReported bypatient.Location:[facility]; bladder Quality:pelvic pressure; feeling of something bulging from vagina; increasing in size Severity:intermittent ;interferes with sexual activity Duration:present for 6-12 months Onset/Timing:degree waxes and wanes Context:no history of chronic idiopathic constipation Aggravating factors:nothing makes it worse Associated Symptoms:no pelvic pressure; no suprapubic pain; no urinary frequency; no urge incontinence; no vaginal discharge; no unexplained vaginal bleeding; feeling of complete evacuation of stool; can pass stool without need for finger pressure in the vagina;incomplete emptying of bladder;urinary urgencyNotes:This patient reports urinary urge that is severe. She has severe nocturia. She also reports pain with intercourse and vaginal dryness. Khalif Corea MD [address], [place], [address], [facility] 08/09/2019 10:55:23 09/07/2019 text/html This patient is a 49-year-old female presents for follow-up on urinary urge incontinence and vaginal atrophy. She is unable to get the vaginal Estrace Due to cost. We will arrange for a compounding pharmacy a prescription. She will follow-up on vaginal atrophy in 2 months. Patient has noted marked improvement of her urinary urge incontinence. She is taking 10 mg of oxybutynin ER. Daily. She was to continue that. She is very satisfied. She will return in 2 months to discuss the effect of the vaginal Estrogen cream. Khalif Corea MD [address], [place], [address], [facility] 09/07/2019 11:19:50 OBGyn Episode Ob Episode Information Episode Created Date Number of Fetuses Patient Bloodtype Patient rh Status Prepregnancy Weight lbs Domestic Partner Domestic Partner Phone Father Name Bpm Architect Status 08/09/19 20 1 CLOSED Fetus Data First Name Last Name Admitted to NICU Weight (g) Sex Living Outcome Pediatric Complications Fetus ID Race Codes Race Delivery Type 3061.74 6 Full Term 2176 Vaginal Delivery Umair Calculation Initial Umair Date Initial Exam Date Initial Exam Provider Initial Ultrasound Date Last Menstrual Period Date Ultra Sound Weeks Gestation 0 Eighteen To Twenty Week Umair Update Ultra Sound Date Fundal Height At Umbil Quickening Date Ultra Sound Latest Weeks Gestation Final Umair Confirmed By Final Umair Confirmed Date Final Umair Date Ultra Sound Latest Days Gestation 0 0 Menstrual History Last Menstrual Date Menses Monthly On Bcp Conception Prior Menses Frequency Hcg Plus Date Menarche Onset Age Delivery Information Delivery Date Delivery Type Labor Anesthesia Weeks Gestation Incision Type Labor Labor Length Hrs Delivered By Post Complications Tubal Sterilization Discharge Date Comments 5 Discharge Information Feeding Method Contraceptive Method Maternal HG B and HCT Levels Ob Episode Information Episode Created Date Number of Fetuses Patient Bloodtype Patient rh Status Prepregnancy Weight lbs Domestic Partner Domestic Partner Phone Father Name Bpm Architect Status 08/09/19 20 1 CLOSED Fetus Data First Name Last Name Admitted to NICU Weight (g) Sex Living Outcome Pediatric Complications Fetus ID Race Codes Race Delivery Type 3401.94 Full Term 2175 Vaginal Delivery Umair Calculation Initial Umair Date Initial Exam Date Initial Exam Provider Initial Ultrasound Date Last Menstrual Period Date Ultra Sound Weeks Gestation 0 Eighteen To Twenty Week Umair Update Ultra Sound Date Fundal Height At Umbil Quickening Date Ultra Sound Latest Weeks Gestation Final Umair Confirmed By Final Umair Confirmed Date Final Umair Date Ultra Sound Latest Days Gestation 0 0 Menstrual History Last Menstrual Date Menses Monthly On Bcp Conception Prior Menses Frequency Hcg Plus Date Menarche Onset Age Delivery Information Delivery Date Delivery Type Labor Anesthesia Weeks Gestation Incision Type Labor Labor Length Hrs Delivered By Post Complications Tubal Sterilization Discharge Date Comments 8 Discharge Information Feeding Method Contraceptive Method Maternal HG B and HCT Levels
== END 2024-04-17 08:25 | disposition home or self-care (01) ==
LOC: CHSIMG 08:26
PROVIDERS: PCP Internal Medicine; Visit Provider Internal Medicine
DX: Z12.31 Encounter for screening mammogram for malignant neoplasm of breast (principal)
CPT/HCPCS: 77063; 77067